=== PATIENT | female | born 1985 | race Hispanic/Latino ===

== ENCOUNTER 2016-08-09 12:16 | Emergency (ER) | payer BC ==
[2016-08-09] MEDS ORDERED: Midazolam 2 MG/2 ML VIAL IV ONE ×2 (12:42→12:51)
[2016-08-09] MEDS ORDERED: Midazolam 2 MG/2 ML VIAL ONE (12:44)
--- NOTE | 2016-08-09 12:50 | ED PDOC ---
Upper Extremity Pain/Injury Time Seen by Provider: 08/09/16 12:29 Chief Complaint (Nursing): Upper Extremity Problem/Injury Chief Complaint (Provider): Upper Extremity Problem/Injury History Per: Patient, EMS History/Exam Limitations: no limitations Onset/Duration Of Symptoms: Mins Current Symptoms Are (Timing): Still Present Quality: "Pain" Severity: Severe Additional Complaint(s): Patient is a 30 year old female who presents to ED via EMS for possibly dislocated left shoulder. Patient reports that she was holding a 60 lbs weight behind her head for lunges when her bilateral shoulders popped. States that her right shoulder was able to pop back in spontaneously but the left one remained dislocated. Now with severe pain to the arm. Denies any other injury. Past Medical History Reviewed: Historical Data, Nursing Documentation, Vital Signs - Medical History PMH: No Chronic Diseases - Surgical History Surgical History: No Surg Hx - Family History Family History: States: No Known Family Hx - Allergies Allergies/Adverse Reactions: Allergies Allergy/AdvReac Type Severity Reaction Status Date / Time No Known Allergies Allergy Verified 08/09/16 12:22 Review of Systems Musculoskeletal: Positive for: Shoulder Pain, Arm Pain. Negative for: Neck Pain , Back Pain Neurological: Negative for: Weakness, Numbness Physical Exam - Reviewed Nursing Documentation Reviewed: Yes Vital Signs Reviewed: Yes - Physical Exam Appears: Positive for: Uncomfortable (moderate-severe painful distress ) Medical Decision Making Medical Decision Making: Time: 1230 Initial impression: Shoulder Dislocation Initial plan: -- Shoulder Xray -- Morphine 8mg IV Time: 1240 Shoulder Xray: (+) dislocation Plan: Conscious sedation for reduction w/ -- Fentanyl 50 mcg IVP -- Versed 2mg IVP Time: 1250 Patient consented for conscious sedation. Reduction performed with 1 attempt and repeat xray ordered. Scribe Attestation: Documented by Peace You acting as a scribe for Carlyn Hill MD MD Scribe Attestation: All medical record entries made by the Scribe were at my direction and personally dictated by me. I have reviewed the chart and agree that the record accurately reflects my personal performance of the history, physical exam, medical decision making, and the department course for this patient. I have also personally directed, reviewed, and agree with the discharge instructions and disposition. 1:54PM Repeat xray shows reduction of prior shoulder dislocation. Will discharge with sling and ortho follow-up. Neurovasculary intact with normal ROM and sensation Procedures - Time-Out Type of Procedure: Shoulder reduction Site of Procedure: left shoulder Correct Patient: Yes Correct Procedure: Yes Correct Site Marked: Yes X-Ray Marked: Yes Physician Name: Sergio - Joint Reduction Joint Reduction Site: shoulder (L) Conscious Sedation: Yes (Versed and Fenatnyl) Reduction Attempts: 1 Pre-Procedure NV Exam: Yes Post Joint Reduction Film: no fracture seen Disposition - Clinical Impression Clinical Impression: Anterior shoulder dislocation - Disposition Referrals: Sabra Bahena MD [Staff Provider] - Disposition Time: 13:33 Condition: GOOD Additional Instructions: Follow up with PMD within 2 days. Keep sling in place. Follow-up with orthopedist. Return to ED if condition worsens. Instructions: Shoulder Dislocation (ED) Forms: [facility] ED School/Work Excuse
[2016-08-09 13:19] VITALS: TEMP 98.1; O2SAT 100
--- NOTE | 2016-08-09 14:28 | RAD ---
PROCEDURE: AP view of the left shoulder HISTORY: shoulder dislocation COMPARISON: No prior TECHNIQUE: Only AP view of the left shoulder was obtained. FINDINGS: There is anterior dislocation of the left glenohumeral joint. No overt fracture is noted. IMPRESSION: Anterior dislocation of the left glenohumeral joint.
--- NOTE | 2016-08-09 14:33 | RAD ---
PROCEDURE: AP view of the left shoulder HISTORY: sp reduction COMPARISON: Comparison is made to the previous same-day exam TECHNIQUE: Only AP view of the left shoulder was obtained. FINDINGS: Patient status post reduction of the previously seen anterior dislocation of the left glenohumeral joint. IMPRESSION: Status post reduction.
[2016-08-09 14:46] VITALS: BP 125/58; PULSE 78; RESP 18
== END 2016-08-09 14:20 | disposition home or self-care (01) ==
LOC: H.ER 12:16
DX: S43.005A Unspecified dislocation of left shoulder joint, initial encounter (principal); X50.9XXA Other and unspecified overexertion or strenuous movements or postures, initial encounter; Y92.89 Other specified places as the place of occurrence of the external cause
CPT/HCPCS: 73020; 96374; 96375; 99283; J2250; J2270; J3010